=== PATIENT | male | born 1930 | race Caucasian/White ===

== ENCOUNTER → 2017-04-03 | Outpatient (REF) | payer MEDICARE ==
[2016-02-13 12:24] VITALS: BMI 28.1
[~2017-04-03] MED LIST: ACETAMINOPHEN; ANTI1CAP2 PO; ASCO-336 PO; ASCORBIC ACID; ASPI81TA94 PO; ATOR10TA65 PO; AZIT-1 PO; AZIT-17 PO; BENZ100C26 PO; BENZ200C15 PO; CALCIUM; CIPR-344 PO; CLI150 PO; CLIN300C99 PO; DIA5 PO; DIAZ-308 PO; DOCU100C49 PO; FAMO20TA9 PO; FEN145 PO; FOL1 PO; FOLI-68 PO; GLY5 PO; GUAI120L PO; GUAI200T22 PO; GUAI600T57 PO; HCTZ25 PO; HYDR-2966 PO; HYDR-385 PO; HYDROCODONE; IBU600 PO; LEV500 PO; LISI-1 PO; LISI5TAB25 PO; LOPE-111 PO; LOR5/325 PO; METF-1 PO; METF-410 PO; METF-420 PO; METO50TA19 PO; METXL50 PO; MULT1CAP45 PO; NIT4 SL; OMEG-11 PO; OMEG500C5 PO; OXYGENHOME INH; PHENA200 PO; PIOG15TA66 PO; PRED20TA6 PO; ROSEHIPS; SUPER BETA PROSTATE; TAMS0.4C25 PO; TAMS0.4C69 PO; TAMS0.4C70 PO; TAMS0.4C76 PO; VITA1CAP46 PO; WAR25 PO; WARF-1 PO; [UNRECOGNIZED DRUG - CODE] PO; [UNRECOGNIZED DRUG - CODE] PO; advair INH; coumadin
== END ==
LOC: ZZSENDIN 20:14
PROVIDERS: ATTEND Internal Medicine
DX: R19.7 Diarrhea, unspecified (principal)
CPT/HCPCS: 83630; 87045; 87177; 87269; 87324; 87449

== ENCOUNTER → 2017-06-04 | Outpatient (CLI) | payer MEDICARE ==
[2016-02-13 12:24] VITALS: BMI 28.1
[2017-06-04 08:40] LABS: PLATELET COUNT, AUTOMATED 173 K/uL (150-450)
[2017-06-04 08:51] LABS: LDL CHOLESTEROL 54 mg/dl
== END ==
LOC: LAB 08:20
PROVIDERS: ATTEND Internal Medicine
DX: E11.65 Type 2 diabetes mellitus with hyperglycemia (principal); I25.10 Atherosclerotic heart disease of native coronary artery without angina pectoris; D75.1 Secondary polycythemia; C61 Malignant neoplasm of prostate
CPT/HCPCS: 36415; 82040; 82247; 82310; 82374; 82435; 82465; 82565; 82947; 83036; 83718; 84075; 84132; 84153; 84155; 84295; 84450; 84460; 84478; 84520; 85025

== ENCOUNTER → 2017-10-14 | Outpatient (CLI) | payer MEDICARE ==
[2016-02-13 12:24] VITALS: BMI 28.1
[~2017-10-14] MED LIST changes: -METF-410 PO; +METF-411 PO; -PIOG15TA66 PO; +PIOG15TA67 PO
== END ==
LOC: LAB 10:40
PROVIDERS: ATTEND Internal Medicine
DX: E11.65 Type 2 diabetes mellitus with hyperglycemia (principal); E78.00 Pure hypercholesterolemia, unspecified; I10 Essential (primary) hypertension
CPT/HCPCS: 36415; 82040; 82247; 82310; 82374; 82435; 82465; 82565; 82947; 83036; 83718; 84075; 84132; 84155; 84295; 84450; 84460; 84478; 84520

== ENCOUNTER → 2017-10-20 | Outpatient (CLI) | payer MEDICARE ==
[2016-02-13 12:24] VITALS: BMI 28.1
== END ==
LOC: LAB 10:10
PROVIDERS: ATTEND Internal Medicine
DX: C61 Malignant neoplasm of prostate (principal)
CPT/HCPCS: 36415; 84153

== ENCOUNTER 2018-06-05 00:47 | Day surgery (SDC) | payer MEDICARE ==
[2016-02-13 12:24] VITALS: Ht 175.3 cm; Wt 68.0 kg
[2018-06-02 10:45] LABS: PLATELET COUNT, AUTOMATED 258 K/uL (150-450)
[2018-06-04 08:15] VITALS: BP 108/68
[2018-06-05] VITALS (11 sets, daily range): BP systolic 94–128; BP diastolic 47–74
[~2018-06-05] VITALS: Ht 175.3 cm; Wt 68.0 kg
[~2018-06-05 00:47] MED LIST changes: -METF-411 PO; +METF-450 PO
[2018-06-05] MEDS ORDERED: LIDOCAINE/SOD BICARB 8.4% SYR ID ONE (08:30)
[2018-06-05] MEDS ORDERED: NORMOSOL R SOLN(*) 1000 ML BAG 1,000 ML IV PRN (08:30)
[2018-06-05] MEDS ORDERED: MIDAZOLAM 2 MG/2 ML VIAL ONE (08:41)
[2018-06-05] MEDS ORDERED: KETAMINE HCL 500 MG/10 ML VIAL ONE (08:42)
--- NOTE | 2018-06-05 09:08 | NUR ---
09- PT BROUGHT TO STEP DOWN BAY 4, PT IN LL POSITION, UNRESPONSIVE AT THIS TIME, OXY MASK IN PLACE AT 10LPM, PT MAINTAINING SATS, RESP, AIRWAY, BITE BLOCK IN PLACE, VSS, SBAR REPORT FROM Silver FITZGERALD RN AND DR. GARDNER, FRIEND PAMELA AT BEDSIDE 908- DECREASED O2 TO 7LPM VIA OXY MASK 914- PT REMAINS UNRESPONSIVE IN LL POSITION, WILL CONTINUE TO MONITOR
--- NOTE | 2018-06-05 09:19 | Short(Outpt) Discharge Summary ---
Discharge Summary Reason for Hosp/Final Diag: (1) Dysphagia Hospital Course & Plan: pt presented for egd. he tolerated the procedure well. he will be discharged home when criteria met. Departure Discharge to: Home Discharge Instructions Home Meds Active Scripts Lisinopril (LISINOPRIL) 5 Mg Tablet, 1 TAB PO QDAY, #90 TAB 0 Refills Prov:FATUMA CARRILLO MD 03/18/18 Diazepam (DIAZEPAM) 5 Mg Tablet, 1 TAB PO BID PRN for ANXIETY, #60 TAB 1 Refill Prov:FATUMA CARRILLO MD 09/17/17 Hydrochlorothiazide (HYDROCHLOROTHIAZIDE) 25 Mg Tablet, 0.5 TAB PO QDAY, #45 TAB 3 Refills Dose change Prov:FATUMA CARRILLO MD 09/17/17 Glyburide (GLYBURIDE) 5 Mg Tab, 1 TAB PO BID, #180 TAB 3 Refills Prov:FATUMA CARRILLO MD 06/04/17 Tamsulosin Hcl (FLOMAX) 0.4 Mg Cap.er.24h, 1 CAP PO QDAY, #90 CAP 3 Refills Prov:FATUMA CARRILLO MD 02/18/17 Folic Acid (FOLIC ACID) 1 Mg Tablet, 1 TAB PO QDAY, #90 TAB 3 Refills Prov:FATUMA CARRILLO MD 09/12/16 Nitroglycerin (NITROSTAT) 0.4 Mg Subl, 1 TAB SL Q5MIN PRN for CHEST PAIN, #100 TAB 5 Refills Prov:FATUMA CARRILLO MD 02/20/16 Reported Medications Aspirin (ASPIRIN) 81 Mg Tab.chew, 1 TAB PO QDAY 02/21/16 Atorvastatin Calcium (ATORVASTATIN CALCIUM) 10 Mg Tablet, 1 TAB PO QDAY, TAB 01/29/16 Oxygen (OXYGEN) Inha, 3 L INH HS, L and PRN during the day 03/07/15 [Super Beta Prostate] No Conflict Check 05/20/14 Vitamin B Complex (VITAMIN B COMPLEX) 1 Each Capsule, 1 CAP PO QDAY 11/01/13 Metoprolol Succinate (METOPROLOL SUCCINATE) 50 Mg Tab.er.24h, 1 TAB PO BID 11/01/13 Antiox #11/Om3/Dha/Epa/Lut/Miguel (OCUVITE ADULT 50+ SOFTGEL) 1 Each Capsule, 1 CAP PO DAILY 08/27/12 Docusate Sodium (STOOL SOFTENER) 100 Mg Capsule, 1 CAP PO QDAY PRN for constipation 08/27/12 Ascorbic Acid (C-500) 500 Mg Tablet.er, 1 TAB PO QDAY 08/27/12 Multivits-Minerals/Fa/Lycopene (MEN'S DAILY FORMULA CAPSULE) 1 Each Capsule, 1 TAB PO DAILY 08/27/12 Diet: Regular Activity: As Tolerated Special Instructions: we will call you in 10 days with biopsy results. CHAI SHORE Jun 05, 2018 09:19
[2018-06-05] MEDS ORDERED: PANT40TA65 PO (09:20)
--- NOTE | 2018-06-05 11:07 | NUR ---
0920 SBAR FROM Payton FEILCIANO, RN 0924 BITE CLOCK REMOVED, PT WAKING UP, DENIES PAIN OR NAUSEA, C/O STRANGE IMAGES WHILE OUT, FRIEND PAMELA AT BEDSIDE 0930 VSS, PT REMAINS IN L LATERAL POSITION, DOWN TO 6L MASK 1000 VSS, PT TOLERATING CAN/APPLE JUICE, ROLLED TO SF POSITION, 5L NC, DR. SHORE AT BEDSIDE 1015 PT REQUESTING MORE JUICE, DOWN TO 4L NC 1030 VSS, PT TOLERATING CRACKERS, READING PAPER 1045 VSS, PT STILL FEELS FUZZY, NOT READY TO GET UP YET 1100 PT REQUESTING MORE JUICE AND CHEESE/CRACKERS, DOWN TO 3L NC, RESTING COMFORTABLY
--- NOTE | 2018-06-05 13:07 | NUR ---
1130 VSS, SITTING ORTHOSTATICS DONE, STABLE, PT TRIED STANDING, FELT FUZZY, SAT BACK DOWN. WILL TRY AGAIN LATER. USED URINAL AT BEDSIDE, 100 ML YELLOW ODORIFEROUS URINE OUT 1145 VSS, PT CONTINUES TO REST BACK IN BED 1230 STANDING ORTHOSTATICS STABLE, PT DENIES DIZZINESS, ALLOWED TO DRESS [address]ESSED REQUESTS IV OUT. REMOVED WITH CATH TIP INTACT, PRESSURE DRESSING APPLIED, ANOTHER 75 ML YELLOW URINE OUT 1250 PT FINISHED DRESSING WITH HELP OF FRIEND, PAMELA. D/C INSTRUCTIONS COVERED. PT OUT TO CAR OUTSIDE ADMITTING ENTRANCE VIA WC. 1300 SELF TRANSFERRED TO CAR WITHOUT INCIDENT, SAFETY MAINTAINED, ON OWN O2, 3L, WILL CONTINUE AT HOME FOR TODAY. ALL BELONGINGS WITH PT.
[2018-06-09] MEDS ORDERED: PANT40TA65 PO (15:06)
== END 2018-06-05 13:00 | disposition home or self-care (01) ==
LOC: OR 00:47
PROVIDERS: ATTEND Surgery
DX: K22.2 Esophageal obstruction (principal); K44.9 Diaphragmatic hernia without obstruction or gangrene; K29.70 Gastritis, unspecified, without bleeding; E11.9 Type 2 diabetes mellitus without complications; I10 Essential (primary) hypertension
CPT/HCPCS: 36415; 36416; 43239; 43249; 82948; 83036; 85025; 88305; 88313; C1726; J2250; 82310; 82374; 82435; 82565; 82947; 84132; 84295; 84520

== ENCOUNTER → 2018-06-17 | Outpatient (CLI) | payer MEDICARE ==
[2016-02-13 12:24] VITALS: BMI 28.1
[~2018-06-17] MED LIST changes: +PANT40TA65 PO
[2018-06-17 15:36] LABS: PLATELET COUNT, AUTOMATED 213 K/uL (150-450)
== END ==
LOC: LAB 14:46
PROVIDERS: ATTEND Emergency Medicine
DX: R63.4 Abnormal weight loss (principal); D64.9 Anemia, unspecified; E03.9 Hypothyroidism, unspecified
CPT/HCPCS: 36415; 82607; 83540; 83550; 84443; 85025; G0103; 82310; 82374; 82435; 82565; 82947; 84132; 84153; 84295; 84439; 84481; 84520